=== PATIENT | male | born 1975 | race Caucasian/White ===

== ENCOUNTER → 2016-12-21 | Outpatient (CLI) | payer OTHER | LOC: CIMAGING 14:57 | PROVIDERS: ATTEND Family Medicine | DX: N50.812 Left testicular pain (principal) | CPT/HCPCS: 76870-PO ==

== ENCOUNTER → 2017-07-30 | Outpatient (CLI) | payer OTHER ==
[~2017-07-30] MED LIST: IOPAMIDOL (ISOVUE 370) 100 ML BTL IV ONE
== END ==
LOC: CIMAGING 11:34
PROVIDERS: ATTEND Physician Assistant Medical
DX: H53.9 Unspecified visual disturbance (principal); Z82.49 Family history of ischemic heart disease and other diseases of the circulatory system; R51 Headache; R93.0 Abnormal findings on diagnostic imaging of skull and head, not elsewhere classified
CPT/HCPCS: 70450-PO; 70496-PO; Q9967

== ENCOUNTER 2017-07-31 11:26 | Emergency (ER) | payer OTHER ==
[~2017-07-31 11:26] MED LIST changes: +GADOBUTROL 10 ML VIAL IVP ONE; -IOPAMIDOL (ISOVUE 370) 100 ML BTL IV ONE
--- NOTE | 2017-07-31 11:48 | EDPHY ---
HPI/HX/ROS/PE/MDM Narrative: CHIEF COMPLAINT: Needs Neck CTA secondary to cerebellar stroke HPI: The patient is a 41 y/o male who was sent here by Dr. Bhat, neurologist, after having tests preformed yesterday that revealed a stroke in his cerebellum. On Sunday, while driving to work he developed pain in the right side of his neck. He then developed visual changes in his right eye, where it looked like there was static. Around 09:30, this visual change progressed to both of his eyes. Around 10:45, the visual changes went away, but he developed a headache that lasted through the weekend. He developed similar visual changes twice before when preforming strenuous exercise. Took Aspirin last night. Currently has a mild headache, but does not feel off balance. Denies chest pain, numbness, paresthesias or other pertinent symptoms. REVIEW OF SYSTEMS: Aside from elements discussed in the HPI, a comprehensive 10-point review of systems was reviewed and is negative. 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 ENT: Eyes are normal to inspection. ENT inspection normal. Neck: Normal inspection. Full range of motion. Respiratory: No respiratory distress. Breath sounds normal bilaterally. Cardiovascular: Regular rate and rhythm. Strong peripheral pulses. Normal cap refill. Abdomen: The abdomen is nontender to palpation. There are no peritoneal signs. There are normal bowel sounds. Back: Normal to inspection. No tenderness to palpation. Skin: Normal color. No rash. Warm and dry. Extremities: Normal appearance. Full range of motion. Neuro: Oriented x3. Normal motor function. Normal sensory function. Portions of this note were transcribed by an ED scribe. I personally performed the history, physical exam, and medical decision making; and confirm the accuracy of the information in the transcribed note. ED Course: 1311: Spoke with Dr. Jurado, radiologist, regarding the patient's neck CTA. Findings reveal a vertebral dissection. 1315: Consulted with Dr. Bhat, neurologist, regarding the imaging findings. He recommends the patient have an echo and take 324mg PO Aspirin, daily. 1428: Patient's echo is normal. 1430: Reassessed patient and discussed imaging findings. I have advised him to take 324mg PO Aspirin daily and follow up with his neurologist and PCP. Return precautions provided; patient is comfortable with this plan. MDM: This patient presents essentially in order to undergo a stat CTA of the neck to complete workup for Cbm CVA. He has no focal complaints or deficits on my exam. CTA reveals vertebral dissection. Given history of symptoms occurring during exercise, I ordered an echocardiogram to ensure there was no structural heart abnormality or proximal aortic dissection. Thankfully this is normal. Plan from Dr. Bhat is for continued ASA use, and I have referred the patient back to Neuro for long-term care. The patient asked me about possibility of travelling to [place] tomorrow. I explained to him that is would be sub-optimal to be in a plane over the [place] if he were to have a neurologic event, and that it is difficult to predict his risk of further issues. I cannot recommend that he is safe to fly at this time. Patient is comfortable with plan and all his questions were answered. We discussed strict return precautions, care regarding ASA anticoagulation and avoidance of trauma, and plan for minimal cardiovascular exercise until further evaluation as an outpatient. - Data Points Imaging Results: Imaging Impressions Brain MRI 07/31/17 08:15 Impression: 1. Findings suggesting acute infarct or early subacute infarct in the right cerebellum. 2. Mild deep hemispheric white matter change bilaterally more predominant in both frontal lobes which is nonspecific. This can be seen with small vessel ischemic disease, gliosis from migraine or trauma, or postinfectious/ postinflammatory etiology. This was also reviewed by Dr. Sridhar Anderson who concurs. Results called and discussed with ALEJANDRA Richard on 07/31/2017 at 9:47 a.m. Neck CTA 07/31/17 12:02 Impression: Abrupt severe narrowing of the distal right vertebral artery, consistent with dissection. Stenoses are calculated using [place] Symptomatic Carotid Endarterectomy Trial (NASCET) criteria. Findings discussed with Dr. Sandro Bender on July 31, 2017 at 1311 hours. Imaging: Discussed imaging studies w/ call or contact centre team leader Radiologist Laboratory Results: 07/31/17 07/31/17 11:55 11:51 POC Hgb 15.6 gm/dL gm/dL (13.7-17.5) POC Hct 46 % % (40-51) POC Sodium 144 mEq/L mEq/L (134-144) POC Potassium 3.9 mEq/L mEq/L (3.3-5.0) POC Chloride 108 mEq/L mEq/L (97-110) POC BUN 17 mg/dL mg/dL (7-23) POC Creatinine 1.2 mg/dL mg/dL (0.7-1.3) POC Glucose 96 mg/dL mg/dL (70-100) Troponin I < 0.012 ng/mL ng/mL (0.000-0.034) Point of Care Test Results: 07/31/17 11:51 POC Sodium 144 POC Potassium 3.9 POC Chloride 108 POC BUN 17 POC Creatinine 1.2 POC Glucose 96 General Time Seen by Provider: 07/31/17 11:32 Initial Vital Signs: Initial Vital Signs Temperature (C) 36.8 C 07/31/17 11:28 Heart Rate 73 07/31/17 11:28 Respiratory Rate 18 07/31/17 11:28 Blood Pressure 131/89 H 07/31/17 11:28 O2 Sat (%) 95 07/31/17 11:28 O2 Delivery Mode Room Air Allergies/Adverse Reactions: No Known Allergies Allergy (Unverified 07/31/17 11:31) Home Medications: Medication Instructions Recorded Aspirin 07/31/17 Departure - Departure Disposition: Home, Routine, Self-Care Clinical Impression: Vertebral artery dissection Condition: Good Instructions: Stroke (DC) Additional Instructions: Take 324mg oral Aspirin daily. Follow up with Dr. Bhat, neurologist, within the next week without fail. Follow up with your primary care doctor within the next week. Return to the Emergency Department if you develop a severe headache, numbness or weakness in your extremities, difficulty speaking, difficulty walking, uncontrollable vomiting, or other worsening of condition. Referrals: Reynaldo Allen MD [Primary Care Provider] - As per Instructions Matthew Bhat MD [Medical Doctor] - As per Instructions Report Scribed for: Sandro Bender Report Scribed by: Shawnee Parks Date of Report: 07/31/17 Time of Report: 11:48
[2017-07-31] MEDS ORDERED: IOPAMIDOL (ISOVUE 370) 100 ML BTL IV ONE (12:34)
[2017-07-31 15:02] VITALS: BP 124/64; PULSE 74; RESP 16; TEMP 98.4; O2SAT 96
--- NOTE | 2017-08-01 17:51 | ECHO ---
[email or web address] [address] [address] Main: [phone] Fax: [email or web address] Echocardiogram Name: CRISTI DUGGAN MR#: [id number] Study Date: 07/31/2017 Study Time: 02:22 PM Date of : 1975 Age: 41 year(s) Height: 195.6 cm (77 in.) Weight: 102.06 kg (225 lb.) BSA: 2.35 m2 Gender: Male Examination: Echo Indication: Stroke, Diplopia Image Quality: Contrast: Requested by: Sandro Bender BP: 135 mmHg/70 mmHg Heart Rate: Rhythm: Normal sinus rhythm Indication: Stroke, Diplopia Procedure Staff Product Support Rep: Arturo Ramos Reading Physician: Cristi Saucedo Requesting Provider: Conclusions: Normal size left ventricle. Normal global systolic LV function. EF is 68 %. No regional wall motion abnormality. Normal RV function. The left atrium is normal in size. Normal appearing atrial septum. The right atrium is normal in size. There is no obvious evidence of cardiac emboli.. Measurements: Chambers Valvular Assessment AV/MV Valvular Assessment TV/PV Normal Normal Normal Name Value Range Name Value Range Name Value Range Ao Ghislaine (MM): 3.3 cm (2.2 cm-3.7 AV Vmax: 1.25 m/s (1 m/s-1.7 PV Vmax: 1.38 m/s (0.6 m/s-0.9 cm) m/s) m/s) IVSd (2D): 1.1 cm (0.6 cm-1.1 AV maxP mmHg ( - ) PV PGmax: 8 mmHg ( - ) cm) LVOT Vmax: 0.71 m/s (0.7 m/s-1.1 LVDd (2D): 5.4 cm (4.2 cm-5.9 m/s) cm) MV E Vmax: 0.71 m/s ( - ) LVDs (2D): 3.4 cm (2.1 cm-4 MV A Vmax: 0.42 m/s ( - ) cm) MV E/A: 1.69 ( - ) LVPWd (2D): 1.1 cm (0.6 cm-1 cm) LVEF (2D): 68 (>=54 %) Continued Measurements: Chambers Valvular Assessment AV/MV Name Value Name Value Patient: CRISTI DUGGAN Study Date: 07/31/2017 Page 1 of 2 02:22 PM LADs Lon.3 cm MV E/E' Septal: 7.50 LA Area: 19.7 cm2 MV E/E' Lateral: 4.40 Findings: Left Ventricle: Normal size left ventricle. No LV hypertrophy. Normal global systolic LV function. EF is 68 %. No regional wall motion abnormality. Normal diastolic LV function. Right Ventricle: Normal size right ventricle. Normal RV function. Left Atrium: The left atrium is normal in size. Normal appearing atrial septum. Right Atrium: The right atrium is normal in size. Mitral Valve: The mitral valve is normal in appearance and function. Aortic Valve: The aortic valve is normal in appearance and function. The aortic valve is tri-leaflet. Tricuspid Valve: The tricuspid valve appears normal. Pulmonic Valve: The pulmonic valve is normal in appearance and function. Aorta: The aorta is normal. Pericardium: No pericardial effusion. Exam Comments: There is no obvious evidence of cardiac emboli.. (No Signature Object) Patient: CRISTI DUGGAN Study Date: 07/31/2017 Page 2 of 2 02:22 PM [id number]
== END 2017-07-31 14:59 | disposition home or self-care (01) ==
DX: I77.74 Dissection of vertebral artery (principal); Z79.82 Long term (current) use of aspirin
CPT/HCPCS: 82947-QW; A9585; Q9967

== ENCOUNTER 2017-08-29 16:07 | Emergency (ER) | payer OTHER ==
[2017-08-29 17:23] LABS: PLATELET COUNT 202 10^3/uL (150-400)
[2017-08-29 17:31] LABS: INR 0.96 (0.83-1.16)
[2017-08-29 18:08] VITALS: RESP 16
[2017-08-29] MEDS ORDERED: IOPAMIDOL (ISOVUE-300) 100 ML BTL ONE (18:39)
[2017-08-29] MEDS ORDERED: IOPAMIDOL (ISOVUE 370) 100 ML BTL IV ONE (18:40)
--- NOTE | 2017-08-29 19:40 | EDPHY ---
H & P Stated Complaint: left flank painx 1 week HPI/ROS: Chief complaint: Left flank pain History of present illness: This is a 42-year-old male who presents to the emergency department for evaluation of left flank pain. He reports the onset of symptoms 5 days ago. Symptoms have been persistent. He describes a soreness. He denies precipitating factors. He denies alleviating or aggravating factors. He denies other associated signs or symptoms including no fevers, no abdominal pain, no nausea, vomiting or diarrhea, no urinary symptoms. No history of trauma. 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 Unclear etiology. He is currently followed by Neurology. He is treated with an aspirin daily. Review of systems: A 10 point review of systems was obtained and other than described above was negative - Personal History Current Tetanus Diphtheria and Acellular Pertussis (TDAP): Yes - Medical/Surgical History Hx Asthma: No Hx Chronic Respiratory Disease: No Hx Diabetes: No Hx Cardiac Disease: No Hx Renal Disease: No Hx Cirrhosis: No Hx Alcoholism: No Hx HIV/AIDS: No Hx Splenectomy or Spleen Trauma: No Other PMH: vertebral artery disessection- stroke - Social History Smoking Status: Former smoker - Physical Exam Exam: General Appearance: Alert, nontoxic. Eyes: Pupils equal and round no pallor or injection. ENT, Mouth: Mucous membranes moist. Respiratory: There are no retractions, lungs are clear to auscultation. Cardiovascular: Regular rate and rhythm. Radial pulses, dorsalis pedis and posterior tibialis pulses 2+ bilaterally. Gastrointestinal: Bowel sounds normal. Abdomen is soft, nondistended, nontender to palpation. No pulsatile masses. Neurological: Alert and oriented x4. Strength and sensation intact and symmetrical. Skin: Warm and dry, no rashes. Musculoskeletal: Head is nontender. Neck is supple non tender. The spine is nontender to palpation along its entire length. No tenderness over the back. Extremities are symmetrical, full range of motion. Psychiatric: Patient is oriented X 3, there is no agitation. Constitutional: Initial Vital Signs Temperature (C) 36.5 C 08/29/17 16:11 Heart Rate 75 08/29/17 16:11 Respiratory Rate 18 08/29/17 16:11 Blood Pressure 151/83 H 08/29/17 16:11 O2 Sat (%) 97 08/29/17 16:11 O2 Delivery Mode Room Air Allergies/Adverse Reactions: No Known Allergies Allergy (Unverified 07/31/17 11:31) Home Medications: Medication Instructions Recorded Aspirin 07/31/17 Fish Oil 1000 mg (*) 08/29/17 Medical Decision Making - Diagnostics Imaging Results: Imaging Impressions Abdomen CTA 08/29/17 18:24 Impression: 1. Normal CT angiogram of the abdominal aorta. 2. No aortic aneurysm, dissection, or flow-limiting stenosis. 3. No acute findings. Findings and recommendations discussed with Emergency Department physician, ALEJANDRA Cornelius, at 1945 hours, on August 29, 2017. Final report concurs with initial preliminary interpretation. Imaging: Discussed imaging studies w/ call center agent Radiologist ED Course/Re-evaluation: Patient is discussed with my secondary supervising physician Dr. Binh Cantor. Patient presents to the emergency department for left flank pain. He has had pain for the last few days. No associated signs or symptoms. He is afebrile and vital signs are stable. Physical exam is benign. Blood studies unremarkable. CTA of the abdomen pelvis unremarkable. I discussed with patient it is not clear as to the exact cause of his symptoms. However, I believe he is appropriate for discharge home. He is asked to follow up with his primary care doctor in 1-2 days for recheck. Strict return precautions are given. The patient voiced understanding and agreement with plan. Differential Diagnosis: Included but not limited to musculoskeletal pain, kidney stone, urinary tract infection, gastritis, peptic ulcer disease, arterial vessel disease - Data Points Laboratory Results: Laboratory Results 08/29/17 17:11 08/29/17 17:11 08/29/17 08/29/17 08/29/17 17:11 17:11 17:11 WBC 5.79 10^3/uL 10^3/uL (3.80-9.50) RBC 5.22 10^6/uL 10^6/uL (4.40-6.38) Hgb 15.8 g/dL g/dL (13.7-17.5) Hct 46.4 % % (40.0-51.0) MCV 88.9 fL fL (81.5-99.8) MCH 30.3 pg pg (27.9-34.1) MCHC 34.1 g/dL g/dL (32.4-36.7) RDW 12.1 % % (11.5-15.2) Plt Count 202 10^3/uL 10^3/uL (150-400) MPV 11.0 fL fL (8.7-11.7) Neut % (Auto) 61.5 % % (39.3-74.2) Lymph % (Auto) 28.5 % % (15.0-45.0) Mills % (Auto) 8.3 % % (4.5-13.0) Eos % (Auto) 0.9 % % (0.6-7.6) Baso % (Auto) 0.3 % % (0.3-1.7) Nucleat RBC Rel Count 0.0 % % (0.0-0.2) Absolute Neuts (auto) 3.56 10^3/uL 10^3/uL (1.70-6.50) Absolute Lymphs (auto) 1.65 10^3/uL 10^3/uL (1.00-3.00) Absolute Monos (auto) 0.48 10^3/uL 10^3/uL (0.30-0.80) Absolute Eos (auto) 0.05 10^3/uL 10^3/uL (0.03-0.40) Absolute Basos (auto) 0.02 10^3/uL 10^3/uL (0.02-0.10) Absolute Nucleated RBC 0.00 10^3/uL 10^3/uL (0-0.01) Immature Gran % 0.5 % % (0.0-1.1) Immature Gran # 0.03 10^3/uL 10^3/uL (0.00-0.10) PT 13.0 SEC SEC (12.0-15.0) INR 0.96 (0.83-1.16) APTT 29.6 SEC SEC (23.0-38.0) Sodium 144 mEq/L mEq/L (135-145) Potassium 4.0 mEq/L mEq/L (3.5-5.2) Chloride 104 mEq/L mEq/L (97-110) Carbon Dioxide 26 mEq/l mEq/l (22-31) Anion Gap 14 mEq/L mEq/L (8-16) BUN 20 mg/dL mg/dL (7-23) Creatinine 1.1 mg/dL mg/dL (0.7-1.3) Estimated GFR > 60 Glucose 84 mg/dL mg/dL (70-100) Calcium 10.1 mg/dL mg/dL (8.5-10.4) Urine Color Urine Appearance Urine pH Ur Specific Jones Urine Protein Urine Ketones Urine Blood Urine Nitrate Urine Bilirubin Urine Urobilinogen Ur Leukocyte Esterase Urine Glucose 08/29/17 16:15 WBC RBC Hgb Hct MCV MCH MCHC RDW Plt Count MPV Neut % (Auto) Lymph % (Auto) Mills % (Auto) Eos % (Auto) Baso % (Auto) Nucleat RBC Rel Count Absolute Neuts (auto) Absolute Lymphs (auto) Absolute Monos (auto) Absolute Eos (auto) Absolute Basos (auto) Absolute Nucleated RBC Immature Gran % Immature Gran # PT INR APTT Sodium Potassium Chloride Carbon Dioxide Anion Gap BUN Creatinine Estimated GFR Glucose Calcium Urine Color COLORLESS Urine Appearance CLEAR Urine pH 7.0 (5.0-7.5) Ur Specific Jones 1.004 (1.002-1.030) Urine Protein NEGATIVE (NEGATIVE) Urine Ketones NEGATIVE (NEGATIVE) Urine Blood NEGATIVE (NEGATIVE) Urine Nitrate NEGATIVE (NEGATIVE) Urine Bilirubin NEGATIVE (NEGATIVE) Urine Urobilinogen NEGATIVE EU EU (0.2-1.0) Ur Leukocyte Esterase NEGATIVE (NEGATIVE) Urine Glucose NEGATIVE (NEGATIVE) Departure - Departure Disposition: Home, Routine, Self-Care Clinical Impression: Left flank pain Condition: Good Instructions: Flank Pain (ED) Additional Instructions: Follow-up with her primary care doctor in 1-2 days for recheck without fail If symptoms worsen or new symptoms develop return to the emergency room for recheck Referrals: Reynaldo Allen MD [Primary Care Provider] - As per Instructions
[2017-08-29 20:09] VITALS: BP 126/81; PULSE 66; TEMP 98.1; O2SAT 95
== END 2017-08-29 20:05 | disposition home or self-care (01) ==
DX: R10.9 Unspecified abdominal pain (principal); Z79.82 Long term (current) use of aspirin; Z87.891 Personal history of nicotine dependence
CPT/HCPCS: Q9967